=== PATIENT | female | born 1945 | race Two or more races ===

== ENCOUNTER 2016-03-14 13:58 | Outpatient (RCR) | payer MEDICARE, MEDICAID ==
[~2016-03-14 13:58] MED LIST: ADVAIR 100-501 EACH INH; ASPIRIN81 MG ORAL; CRESTOR10 M1 ORAL; CYMBALTA20 MG ORAL; DIOVAN40 MG ORAL; NEXIUM20 MG ORAL
--- NOTE | 2016-03-21 19:00 | Infectious Diseases Prog Note ---
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 labs were reviewed and were normal (2) Pressure ulcer of foot, stage 3 Assessment & Plan: improving with antibiotics, recommend off loading and special shoe as per imaging engineer , continue local wound care and debridement as needed (3) Hypertension Assessment & Plan: controlled with oral meds Subjective Constitutional: Reports: no symptoms HEENT: Reports: no symptoms Respiratory: Reports: no symptoms Breasts: Reports: no symptoms Cardiovascular: Reports: no symptoms Gastrointestinal/Abdominal: Reports: no symptoms Genitourinary: Reports: no symptoms Neurologic: Reports: no symptoms Psychiatric: Reports: no symptoms Skin: Reports: ulcer Endocrine: Reports: no symptoms Hematologic: Reports: no symptoms Allergies: Coded Allergies: No Known Allergies (Unverified , 08/09/12) Subjective she was doing well, her left foot wound was clean, and debrided, with minimal bleeding , no skin redness or erythema, no swelling , no drainage Objective General Appearance: WD/WN, no acute distress HEENT: normocephalic, atraumatic, anicteric, mucous membranes moist Respiratory/Chest: chest wall non-tender, lungs clear, normal breath sounds, no respiratory distress, no accessory muscle use Cardiovascular: normal peripheral pulses, normal rate, regular rhythm, no gallop/murmur Abdomen: normal bowel sounds, soft, non tender, no organomegaly, non distended Extremities: no cyanosis, no clubbing, other - left foot sole wound with clean borders Skin: no rash, no lesions Tere Spaulding M.D. Mar 21, 2016 19:00
--- NOTE | 2016-04-04 16:12 | Infectious Diseases Prog Note ---
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 labs were reviewed and noted (2) Pressure ulcer of foot, stage 3 Assessment & Plan: improving with antibiotics, recommend off loading and special shoe as per director of customer acquisition , continue local wound care and debridement as needed (3) Hypertension Assessment & Plan: controlled with diovan, now has elevated creatinine , recommend to follow up with PCP, and to repeat labs in a week Subjective Constitutional: Denies: anorexia, chills, drenching sweats, fatigue, fever, no symptoms, other HEENT: Denies: congestion, coryza, dysphagia, hearing change, no symptoms, other, visual change Respiratory: Denies: dry cough, no symptoms, other, productive cough, shortness of breath Breasts: Denies: discharge, no symptoms, other, swelling, tenderness Cardiovascular: Denies: chest pain, dyspnea on exertion, no symptoms, other, palpitations Gastrointestinal/Abdominal: Denies: bloating, blood in stool, constipation, diarrhea, nausea, no symptoms, other, vomiting Genitourinary: Denies: dysuria, frequency, hematuria, last menstrual period, no symptoms, nocturia, other, vaginal bleed/discharge Neurologic: Denies: confusion, headache, no symptoms, numbness, other, weakness Psychiatric: Denies: anxiety, depression, no symptoms, other Skin: Reports: ulcer Endocrine: Denies: feels cold, feels warm, no symptoms, other Allergies: Coded Allergies: No Known Allergies (Unverified , 08/09/12) Subjective her left foot wound was clean, with grnaulation at the base, no evidence of skin infection or drainage, no skin redness or erythema, she denied any symptoms. Objective General Appearance: WD/WN, no acute distress HEENT: normocephalic, atraumatic, anicteric, mucous membranes moist, EOMI, pharynx normal, supple, no JVD Respiratory/Chest: chest wall non-tender, lungs clear, normal breath sounds, no respiratory distress, no accessory muscle use Cardiovascular: normal peripheral pulses, normal rate, regular rhythm, no gallop/murmur, no JVD Abdomen: normal bowel sounds, soft, non tender, no organomegaly, non distended , no mass, no scars Extremities: no cyanosis, no clubbing Skin: no rash, no lesions, ulcers - at the left foot sole, clean and dry Tere Spaulding M.D. Apr 04, 2016 16:11
== END 2016-04-11 | disposition home or self-care (01) ==
LOC: WCC 13:58
DX: L97.513 Non-pressure chronic ulcer of other part of right foot with necrosis of muscle (principal); M79.672 Pain in left foot; M86.171 Other acute osteomyelitis, right ankle and foot; Z89.422 Acquired absence of other left toe(s); I10 Essential (primary) hypertension; E78.00 Pure hypercholesterolemia, unspecified; J44.9 Chronic obstructive pulmonary disease, unspecified; K21.9 Gastro-esophageal reflux disease without esophagitis; Z86.59 Personal history of other mental and behavioral disorders; I25.10 Atherosclerotic heart disease of native coronary artery without angina pectoris
CPT/HCPCS: 11043

== ENCOUNTER 2016-04-18 14:00 | Outpatient (RCR) | payer MEDICARE, MEDICAID | END 2016-05-09 | disposition home or self-care (01) | LOC: WCC 14:00 | DX: L97.523 Non-pressure chronic ulcer of other part of left foot with necrosis of muscle (principal); M86.171 Other acute osteomyelitis, right ankle and foot; M79.672 Pain in left foot; S98.212A Complete traumatic amputation of two or more left lesser toes, initial encounter; X58.XXXA Exposure to other specified factors, initial encounter; Y93.9 Activity, unspecified; Y92.9 Unspecified place or not applicable; I10 Essential (primary) hypertension; J44.9 Chronic obstructive pulmonary disease, unspecified; I25.10 Atherosclerotic heart disease of native coronary artery without angina pectoris | CPT/HCPCS: 11042; G0463 ==

== ENCOUNTER 2016-05-16 15:25 | Outpatient (RCR) | payer MEDICARE, MEDICAID | END 2016-06-09 | disposition home or self-care (01) | LOC: WCC 15:25 | DX: S98.212A Complete traumatic amputation of two or more left lesser toes, initial encounter (principal); M79.672 Pain in left foot; M86.171 Other acute osteomyelitis, right ankle and foot; L97.523 Non-pressure chronic ulcer of other part of left foot with necrosis of muscle; Z91.19 Patient's noncompliance with other medical treatment and regimen; I10 Essential (primary) hypertension; E78.00 Pure hypercholesterolemia, unspecified; J44.9 Chronic obstructive pulmonary disease, unspecified; K21.9 Gastro-esophageal reflux disease without esophagitis; I25.10 Atherosclerotic heart disease of native coronary artery without angina pectoris; X58.XXXA Exposure to other specified factors, initial encounter; Y93.9 Activity, unspecified; Y92.9 Unspecified place or not applicable | CPT/HCPCS: 11042; G0463 ==

== ENCOUNTER 2016-06-13 13:30 | Outpatient (RCR) | payer MEDICARE, MEDICAID | END 2016-07-09 | disposition home or self-care (01) | LOC: WCC 13:30 | DX: L97.523 Non-pressure chronic ulcer of other part of left foot with necrosis of muscle (principal); Z91.19 Patient's noncompliance with other medical treatment and regimen; M79.672 Pain in left foot; S98.212A Complete traumatic amputation of two or more left lesser toes, initial encounter; I10 Essential (primary) hypertension; E78.00 Pure hypercholesterolemia, unspecified; J44.9 Chronic obstructive pulmonary disease, unspecified; K21.9 Gastro-esophageal reflux disease without esophagitis; I25.10 Atherosclerotic heart disease of native coronary artery without angina pectoris | CPT/HCPCS: 11042; 87070; 87181; 87205; G0463 ==

== ENCOUNTER 2016-07-11 13:36 | Outpatient (RCR) | payer MEDICARE, MEDICAID | END 2016-08-09 | disposition home or self-care (01) | LOC: WCC 13:36 | DX: L97.523 Non-pressure chronic ulcer of other part of left foot with necrosis of muscle (principal); Z91.19 Patient's noncompliance with other medical treatment and regimen; M79.672 Pain in left foot; S98.212A Complete traumatic amputation of two or more left lesser toes, initial encounter; I10 Essential (primary) hypertension; J44.9 Chronic obstructive pulmonary disease, unspecified; K21.9 Gastro-esophageal reflux disease without esophagitis; I25.10 Atherosclerotic heart disease of native coronary artery without angina pectoris | CPT/HCPCS: 11042; 87070; 87181; 87205; G0463 ==

== ENCOUNTER 2016-08-15 13:30 | Outpatient (RCR) | payer MEDICARE, MEDICAID | END 2016-09-08 | disposition home or self-care (01) | LOC: WCC 13:30 | DX: S98.212A Complete traumatic amputation of two or more left lesser toes, initial encounter (principal); X58.XXXA Exposure to other specified factors, initial encounter; Y93.9 Activity, unspecified; Y92.9 Unspecified place or not applicable; M79.672 Pain in left foot; L97.523 Non-pressure chronic ulcer of other part of left foot with necrosis of muscle; Z91.19 Patient's noncompliance with other medical treatment and regimen; I10 Essential (primary) hypertension; I25.10 Atherosclerotic heart disease of native coronary artery without angina pectoris; J44.9 Chronic obstructive pulmonary disease, unspecified; K21.9 Gastro-esophageal reflux disease without esophagitis | CPT/HCPCS: 11042; 11055; G0463 ==

== ENCOUNTER 2016-09-20 11:30 | Outpatient (RCR) | payer MEDICARE, MEDICAID | END 2016-10-09 | disposition home or self-care (01) | LOC: WCC 11:30 | DX: S98.212A Complete traumatic amputation of two or more left lesser toes, initial encounter (principal); M79.672 Pain in left foot; L97.523 Non-pressure chronic ulcer of other part of left foot with necrosis of muscle; Z91.19 Patient's noncompliance with other medical treatment and regimen; X58.XXXA Exposure to other specified factors, initial encounter; Y93.9 Activity, unspecified; Y92.9 Unspecified place or not applicable; J44.9 Chronic obstructive pulmonary disease, unspecified; K21.9 Gastro-esophageal reflux disease without esophagitis; I25.10 Atherosclerotic heart disease of native coronary artery without angina pectoris; I10 Essential (primary) hypertension | CPT/HCPCS: 11042; G0463 ==

== ENCOUNTER 2016-10-10 13:30 | Outpatient (RCR) | payer MEDICARE, MEDICAID | END 2016-11-09 | disposition home or self-care (01) | LOC: WCC 13:30 | DX: L97.523 Non-pressure chronic ulcer of other part of left foot with necrosis of muscle (principal); Z91.19 Patient's noncompliance with other medical treatment and regimen; M79.672 Pain in left foot; S98.212A Complete traumatic amputation of two or more left lesser toes, initial encounter; X58.XXXA Exposure to other specified factors, initial encounter; Y93.9 Activity, unspecified; Y92.9 Unspecified place or not applicable; I10 Essential (primary) hypertension; J44.9 Chronic obstructive pulmonary disease, unspecified; K21.9 Gastro-esophageal reflux disease without esophagitis; I25.10 Atherosclerotic heart disease of native coronary artery without angina pectoris | CPT/HCPCS: 11042 ==

== ENCOUNTER 2016-11-14 14:00 | Outpatient (RCR) | payer MEDICARE, MEDICAID | END 2016-12-09 | disposition home or self-care (01) | LOC: WCC 14:00 | DX: L97.523 Non-pressure chronic ulcer of other part of left foot with necrosis of muscle (principal); M79.672 Pain in left foot; Z91.19 Patient's noncompliance with other medical treatment and regimen; S98.212A Complete traumatic amputation of two or more left lesser toes, initial encounter; X58.XXXA Exposure to other specified factors, initial encounter; Y93.9 Activity, unspecified; Y92.9 Unspecified place or not applicable; J44.9 Chronic obstructive pulmonary disease, unspecified; K21.9 Gastro-esophageal reflux disease without esophagitis; I25.10 Atherosclerotic heart disease of native coronary artery without angina pectoris; F32.9 Major depressive disorder, single episode, unspecified; I10 Essential (primary) hypertension | CPT/HCPCS: 11042; G0463 ==

== ENCOUNTER 2016-12-26 14:00 | Outpatient (RCR) | payer MEDICARE, MEDICAID | END 2017-01-09 | disposition home or self-care (01) | LOC: WCC 14:00 | DX: S98.212A Complete traumatic amputation of two or more left lesser toes, initial encounter (principal); M79.672 Pain in left foot; L97.523 Non-pressure chronic ulcer of other part of left foot with necrosis of muscle; Z91.19 Patient's noncompliance with other medical treatment and regimen; I10 Essential (primary) hypertension; E78.00 Pure hypercholesterolemia, unspecified; J44.9 Chronic obstructive pulmonary disease, unspecified; K21.9 Gastro-esophageal reflux disease without esophagitis; F32.9 Major depressive disorder, single episode, unspecified; I25.10 Atherosclerotic heart disease of native coronary artery without angina pectoris; X58.XXXA Exposure to other specified factors, initial encounter; Y93.9 Activity, unspecified; Y92.9 Unspecified place or not applicable | CPT/HCPCS: 11042 ==

== ENCOUNTER 2017-01-16 13:50 | Outpatient (RCR) | payer MEDICARE, MEDICAID | END 2017-02-08 | disposition home or self-care (01) | LOC: WCC 13:50 | DX: S98.212A Complete traumatic amputation of two or more left lesser toes, initial encounter (principal); M79.672 Pain in left foot; L97.523 Non-pressure chronic ulcer of other part of left foot with necrosis of muscle; Z91.19 Patient's noncompliance with other medical treatment and regimen; L03.116 Cellulitis of left lower limb; X58.XXXA Exposure to other specified factors, initial encounter; Y93.9 Activity, unspecified; Y92.9 Unspecified place or not applicable; K21.9 Gastro-esophageal reflux disease without esophagitis; I10 Essential (primary) hypertension; E78.00 Pure hypercholesterolemia, unspecified; J44.9 Chronic obstructive pulmonary disease, unspecified; F32.9 Major depressive disorder, single episode, unspecified; I25.10 Atherosclerotic heart disease of native coronary artery without angina pectoris | CPT/HCPCS: 11042; 11043; 87070; 87181; 87205 ==

== ENCOUNTER 2017-02-13 14:16 | Outpatient (RCR) | payer MEDICARE, MEDICAID ==
--- NOTE | 2017-02-20 14:28 | Infectious Diseases Prog Note ---
Assessment/Plan Problems: (1) Pressure ulcer of foot, stage 3 Assessment & Plan: infected with MRSA and Morganella dougnii with undelying osteomyelitis of the distal third and fourth metatarsal bone on MRI , will start patient on vancomycin and ertapenem for 6 weeks , she was adviced to have her foot spur removed , since it may cause treatment failure and recurrent skin injury and wound infection, but she refused . continue local wound care as per machine chocolate molder . 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 continue local foot wound care as per machine chocolate molder , monitor vancomycin trough twice weekly to keep between 15-20 . will monitor weekly labs with CBC, CMP . (3) Bone spur Assessment & Plan: of the left foot , recommend surgical resection to prevent recurrent soft tissue injury and wound infection , D/W via political scientist Subjective Constitutional: Reports: no symptoms HEENT: Reports: no symptoms Respiratory: Reports: no symptoms Breasts: Reports: no symptoms Cardiovascular: Reports: no symptoms Gastrointestinal/Abdominal: Reports: no symptoms Genitourinary: Reports: no symptoms Neurologic: Reports: no symptoms Psychiatric: Reports: no symptoms Skin: Reports: ulcer, other - left lateral foot wound with drainage of pus materials Endocrine: Reports: no symptoms Hematologic: Reports: no symptoms Musculoskeletal: Reports: pain, swelling Allergies: Coded Allergies: No Known Allergies (Unverified , 08/09/12) Objective General Appearance: WD/WN, no acute distress HEENT: normocephalic, atraumatic, anicteric, mucous membranes moist, PERRL, EOMI, pharynx normal, supple, no JVD Respiratory/Chest: chest wall non-tender, lungs clear, normal breath sounds, no respiratory distress, no accessory muscle use Cardiovascular: normal peripheral pulses, normal rate, regular rhythm, no gallop/murmur, no JVD Abdomen: normal bowel sounds, soft, non tender, no organomegaly, non distended , no mass, no scars Extremities: no cyanosis, no clubbing Skin: no rash, no lesions, ulcers, other - left lateral foot wound at the bottom of her foot, drainning pus like materials Neurologic/Psychiatric: alert, oriented x 3, responsive Lymphatic: no neck adenopathy, no groin adenopathy Musculoskeletal: normal muscle bulk Mawas,Isam M.D. Feb 20, 2017 14:28
== END 2017-03-11 | disposition home or self-care (01) ==
LOC: WCC 14:16
DX: L97.523 Non-pressure chronic ulcer of other part of left foot with necrosis of muscle (principal); S98.212A Complete traumatic amputation of two or more left lesser toes, initial encounter; M79.672 Pain in left foot; Z91.19 Patient's noncompliance with other medical treatment and regimen; L03.116 Cellulitis of left lower limb; I10 Essential (primary) hypertension; E78.00 Pure hypercholesterolemia, unspecified; J44.9 Chronic obstructive pulmonary disease, unspecified; K21.9 Gastro-esophageal reflux disease without esophagitis; I25.10 Atherosclerotic heart disease of native coronary artery without angina pectoris; F32.9 Major depressive disorder, single episode, unspecified; M86.072 Acute hematogenous osteomyelitis, left ankle and foot; X58.XXXA Exposure to other specified factors, initial encounter; Y93.9 Activity, unspecified; Y92.9 Unspecified place or not applicable
CPT/HCPCS: 11043; G0463

== ENCOUNTER 2017-02-14 15:00 | Outpatient (CLI) | payer MEDICARE, MEDICAID ==
--- NOTE | 2017-02-13 18:47 | Consultation ---
DATE OF CONSULTATION: 02/13/2017 INFECTIOUS DISEASES CONSULTATION CONSULTING PHYSICIAN: Tere Spaulding M.D. REQUESTING PHYSICIAN: Kodak Kaur D.P.M. REASON FOR CONSULTATION: Left foot chronic wound infection with possible underlying osteomyelitis due to MRSA and Morganella morganii, recommendation for antibiotics treatment in a noncompliant patient. HISTORY OF PRESENT ILLNESS: The patient is a 71-year-old Afghan-speaking female with past medical history of left metatarsal amputation and chronic nonhealing ulcer of the left foot starting way back in January 2016 when she was evaluated with an MRI of the left foot, which showed evidence of soft tissue infection and underlying osteo, received six weeks of intravenous antibiotics with no significant improvement in her wound recovery. The patient is well known to have a bone spur and she refused to have her spur removed. As per label tacker recommendation, she has been poorly compliant with medical management. The patient had persistent wound on the left foot with infection. Culture recently grew MRSA and Morganella Morgagni. So, I was consulted by the label tacker for antibiotics treatment and further evaluation of her chronic nonhealing wound of the left foot. As of note, the patient is Afghan speaker mainly, unable to provide good history. History was obtained from the nursing staff and by rodding anode worker. REVIEW OF SYSTEMS: A 14-point of system reviewed were all negative apart from the one I mentioned above in my History and Physical. PAST MEDICAL HISTORY: Significant for amputation of the left foot toes due to trauma, chronic ulcer of the left foot with muscle necrosis, noncompliance, and cellulitis of the left lower extremity. PAST SURGICAL HISTORY: She had complete traumatic amputation of her left foot toes. MEDICATIONS: Please refer to MAR for further details. ALLERGIES: No known drug allergy. SOCIAL HISTORY: She is retired and unemployed. Denied using any drugs, tobacco, or alcohol. Lives with family. FAMILY HISTORY: Noncontributory. PHYSICAL EXAMINATION: VITAL SIGNS: Reviewed and stable. GENERAL: An elderly female, up in bed, awake, alert, oriented, not in distress, Afghan speaker mainly. HEENT: Normocephalic and atraumatic. Pupils reactive to light. Moist oral mucosa. No exudate. NECK: Supple. No lymphadenopathy. CARDIOVASCULAR: Regular rate and rhythm. No murmur or gallop. LUNGS: Clear bilaterally. No wheezing or rhonchi. ABDOMEN: Soft, nontender, nondistended. Positive bowel sounds. No hepatosplenomegaly or ascites. EXTREMITIES: No edema or cyanosis. Left foot chronic wound at the bottom of her foot on the lateral aspect with exposed muscle and bleeding at the base. Skin is red and erythematous around the wound with redness and erythema compatible with cellulitis. Pulse, +1 distal and pedal on both lower extremities. LABORATORY AND DIAGNOSTIC DATA: Laboratories, none available during this visit. Imaging, MRI of the left foot without contrast pending. ASSESSMENT AND RECOMMENDATION: 1. Left foot chronic nonhealing wound in a patient, who is poorly compliant suspect underlying deep infection and osteomyelitis. At this point, I will order MRI of the left foot without contrast to rule out any bone infection or deep abscess. We will hold off antibiotics pending the result of the MRI. If the MRI shows osteomyelitis, she will need six-week IV antibiotics treatment with aggressive wound care by the label tacker. Plan of care was explained to the patient via rodding anode worker. She understood and agreed to proceed. The patient was advised to be compliant with the current management since failure to comply with antibiotics treatment will lead to amputation in the future. All risks and benefits were explained. 2. Left foot cellulitis. The patient will be on antibiotics treatment pending the MRI results. 3. Coronary artery disease. Continue cardiac medications. Follow up with Cardiology as needed. Please feel free to call with any question. Tere Spaulding M.D. DR: Dalila JOB#: [id number] CC:
[2017-02-14 16:43] LABS: BASOPHILS % (AUTO) 0.8 % (0.0-2.0); EOSINOPHILS % (AUTO) 1.5 % (0.0-3.0); MEAN CORPUSCULAR HEMOGLOBIN 29.3 PG (27.0-31.0); MEAN CORPUSCULAR HGB CONC 32.7 G/DL (32.0-36.0); MEAN CORPUSCULAR VOLUME 90 FL (80-99); MEAN PLATELET VOLUME 7.5 FL (6.5-10.1); MONOCYTES % (AUTO) 7.2 % (1.0-10.0); NEUTROPHILS % (AUTO) 63.5 % (45.0-75.0); PLATELET COUNT 289 K/UL (150-450); RED BLOOD COUNT 4.46 M/UL (4.20-5.40); RED CELL DISTRIBUTION WIDTH 12.2 % (11.6-14.8); WHITE BLOOD COUNT 10.1 K/UL (4.8-10.8)
[2017-02-14 16:45] LABS: ALANINE AMINOTRANSFERASE 18 U/L (12-78); ALBUMIN/GLOBULIN RATIO 0.8 (1.0-2.7); ANION GAP 8 mmol/L (5-15); ASPARTATE AMINO TRANSFERASE 14 U/L (15-37); CALCIUM 9.2 MG/DL (8.5-10.1); CARBON DIOXIDE 34 MMOL/L (21-32); CHLORIDE 102 MMOL/L (98-107); CREATININE 0.7 MG/DL (0.55-1.30); POTASSIUM 3.7 MMOL/L (3.5-5.1); SODIUM 143 MMOL/L (136-145); TOTAL PROTEIN 8.4 G/DL (6.4-8.2)
--- NOTE | 2017-02-15 10:59 | Diagnostic Imaging Report ---
Indication: OSTEOMY Technique: Sagittal, axial, and coronal T1 fast spin-echo and FSE STIR images of the left foot Comparison: 02/01/2016. No current plain radiographs Findings: There is considerable image degradation due to motion artifact; per technologist, patient unable unable to hold still Again demonstrated are prior amputations of the first or fourth digits at the level of the metatarsophalangeal joints, and the entire fifth metatarsal and distal fifth digit. Again demonstrated are extensive proliferative changes of the metatarsal heads. There is ankylosis of the third and fourth metatarsal heads, better demonstrated on radiograph 02/01/2016. There is also extensive ankylosis of the bones of the midfoot and hindfoot, also previously described. The proliferative new bone of the fourth metatarsal head demonstrates increased STIR and subtle decreased T1 signal. There is also slight increased STIR and subtle decreased T1 signal within the fourth metatarsal shaft. There is increased STIR signal within the new bone of the third metatarsal head as well. This does not demonstrate definite T1 signal abnormality, but there is suggestion of very subtle decreased T1 signal within the third metatarsal shaft. No definite signal abnormality of the first and second metatarsals is demonstrated. No definite signal abnormality of the midfoot and hindfoot is demonstrated. There is some soft tissue edema. This is most notable in the soft tissues surrounding the distal metatarsals, particularly inferiorly and anteriorly. There is also considerable soft tissue edema in the dorsal posterior forefoot and lateral and medial to the ankle. No definite focal drainable fluid collection demonstrated. When compared to the prior study, the signal abnormalities of the third and fourth metatarsals shunt, but markedly decreased in conspicuity. The surrounding soft tissue edema is less extensive than previously is similar in distribution. Impression: Limited exam, as described STIR and T1 abnormalities of the distal third and fourth metatarsals. Findings are suspicious for osteomyelitis. Note, however, that the intensity of the signal abnormality is considerably decreased from a prior study of 02/01/2016 Soft tissue edema, likely cellulitis, of the forefoot and ankle region. This is likewise similar in distribution to but slightly less severe than on prior study of 02/01/2016 No focal abscess demonstrated Postsurgical changes, as described. Ankylosis of the mid and hindfoot, also previously reported
== END 2017-02-14 17:00 | disposition home or self-care (01) ==
LOC: MRI 15:00
DX: S91.302A Unspecified open wound, left foot, initial encounter (principal); L03.116 Cellulitis of left lower limb; I25.10 Atherosclerotic heart disease of native coronary artery without angina pectoris; Z89.432 Acquired absence of left foot; X58.XXXA Exposure to other specified factors, initial encounter; Y93.9 Activity, unspecified; Y92.9 Unspecified place or not applicable
CPT/HCPCS: 36415; 80053; 85025

== ENCOUNTER 2017-02-21 09:53 | Outpatient (CLI) | payer MEDICARE, MEDICAID ==
--- NOTE | 2017-02-21 11:45 | Diagnostic Imaging Report ---
Indications: Needs long-term IV access Technique: Ultrasound confirms patent compressible left basilic vein. Total sterile technique, including sterile probe cover and sterile gel, hat, mask,, sterile gown, large sterile drape, and preparation with 2% chlorhexidine utilized. Local anesthesia with 1% lidocaine. Under real-time ultrasound guidance, puncture basilic vein using 21-gauge needle, documented and archived, passage 0.018 guidewire under direct fluoroscopy, which was used to determine appropriate catheter length, exchange for 5 Estonian peel-away sheath. 5 [place] Bard dual-lumen power PICC cut to 40 cm. It was inserted through the peel-away sheath. Peel-away sheath and guidewire removed. Catheter fixed to the skin. Both catheter ports aspirated and flushed. Patient tolerated procedure well, without immediate complication. Digital radiograph documents satisfactory catheter tip position, at the high right atrium. Total fluoroscopy time one minute. Total dose area product 31 dGycm2 Impression: Successful placement of left arm PICC under sonographic and fluoroscopic guidance, as described above.
== END 2017-02-21 11:53 | disposition home or self-care (01) ==
LOC: RAD 09:53
DX: M86.9 Osteomyelitis, unspecified (principal)
CPT/HCPCS: 36569; 76937

== ENCOUNTER 2017-03-20 13:00 | Outpatient (RCR) | payer MEDICARE, MEDICAID | END 2017-04-11 | disposition home or self-care (01) | LOC: WCC 13:00 | DX: L89.893 Pressure ulcer of other site, stage 3 (principal); I10 Essential (primary) hypertension; E78.00 Pure hypercholesterolemia, unspecified; J44.9 Chronic obstructive pulmonary disease, unspecified; K21.9 Gastro-esophageal reflux disease without esophagitis; F32.9 Major depressive disorder, single episode, unspecified; I25.10 Atherosclerotic heart disease of native coronary artery without angina pectoris | CPT/HCPCS: 11043; G0463 ==

== ENCOUNTER 2017-03-20 13:59 | Outpatient (CLI) | payer MEDICARE, MEDICAID ==
--- NOTE | 2017-03-20 15:25 | Infectious Diseases Prog Note ---
Assessment/Plan Problems: (1) Pressure ulcer of foot, stage 3 Assessment & Plan: due to untreated bone spur, with culture grew MRSA, and morganella morgannii , on vancomycin and cefepime for 6 weeks, recommend surgical resection of the bone spur , to improve healing and to prevent recurrent infection . 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 (3) Bone spur Assessment & Plan: she is scheduled for surgical resection by circular saw edge fuser Subjective Constitutional: Reports: no symptoms HEENT: Reports: no symptoms Respiratory: Reports: no symptoms Breasts: Reports: no symptoms Cardiovascular: Reports: no symptoms Gastrointestinal/Abdominal: Reports: no symptoms Genitourinary: Reports: no symptoms Neurologic: Reports: no symptoms Psychiatric: Reports: no symptoms Skin: Reports: ulcer Endocrine: Reports: no symptoms Hematologic: Reports: no symptoms Musculoskeletal: Reports: pain, swelling Allergies: Coded Allergies: No Known Allergies (Unverified , 08/09/12) Objective General Appearance: WD/WN, no acute distress HEENT: normocephalic, atraumatic, anicteric, mucous membranes moist, PERRL, EOMI, pharynx normal, supple, no JVD Respiratory/Chest: chest wall non-tender, lungs clear, normal breath sounds, no respiratory distress, no accessory muscle use Cardiovascular: normal peripheral pulses, normal rate, regular rhythm, no gallop/murmur, no JVD Abdomen: normal bowel sounds, soft, non tender, no organomegaly, non distended , no mass, no scars Extremities: no cyanosis, no clubbing Skin: no rash, lesions, ulcers - left lateral foot wound with clean base and good granulation Neurologic/Psychiatric: alert, oriented x 3, responsive Tere Spaulding M.D. Mar 20, 2017 15:25
--- NOTE | 2017-03-20 15:46 | Diagnostic Imaging Report ---
Indication: Dyspnea Comparison: None 2 views of the chest obtained. Findings: Cardiomediastinal silhouette and pulmonary vascularity are within normal limits for age. The diaphragmatic contour is smooth and costophrenic angles are sharp. No pleural effusions are identified. The bones are osteopenic. There is a PICC line which is in good position with the tip in the right atrium. Mild thoracic scoliosis noted.. Impression: No acute disease
--- NOTE | 2017-03-23 15:07 | Cardiology Report ---
APPROVED REPORT EKG Measurement Heart [id number] Normal sinus rhythm T wave abnormality, consider lateral ischemia Abnormal ECG
== END 2017-03-20 15:59 | disposition home or self-care (01) ==
LOC: RAD 13:59
DX: R05 Cough (principal); M85.80 Other specified disorders of bone density and structure, unspecified site; M41.9 Scoliosis, unspecified
CPT/HCPCS: 71046; 93005; G0463; 11043

== ENCOUNTER 2017-05-08 12:57 | Outpatient (RCR) | payer MEDICARE, MEDICAID | END 2017-05-09 | disposition home or self-care (01) | LOC: WCC 12:57 | DX: T81.89XA Other complications of procedures, not elsewhere classified, initial encounter (principal); E78.00 Pure hypercholesterolemia, unspecified; J44.9 Chronic obstructive pulmonary disease, unspecified; K21.9 Gastro-esophageal reflux disease without esophagitis; F32.9 Major depressive disorder, single episode, unspecified; I25.10 Atherosclerotic heart disease of native coronary artery without angina pectoris; I11.9 Hypertensive heart disease without heart failure; Y83.9 Surgical procedure, unspecified as the cause of abnormal reaction of the patient, or of later complication, without mention of misadventure at the time of the procedure | CPT/HCPCS: G0463 ==

== ENCOUNTER 2017-05-15 12:51 | Outpatient (RCR) | payer MEDICARE, MEDICAID | END 2017-06-09 | disposition home or self-care (01) | LOC: WCC 12:51 | DX: S91.302D Unspecified open wound, left foot, subsequent encounter (principal); X58.XXXD Exposure to other specified factors, subsequent encounter; E78.00 Pure hypercholesterolemia, unspecified; K21.9 Gastro-esophageal reflux disease without esophagitis; J44.9 Chronic obstructive pulmonary disease, unspecified; F32.9 Major depressive disorder, single episode, unspecified; I11.9 Hypertensive heart disease without heart failure | CPT/HCPCS: G0463 ==